=== PATIENT | female | born 1965 | race Caucasian/White ===

== ENCOUNTER 2017-08-17 19:05 | Inpatient (IN) | payer OTHER ==
[~2017-08-17] VITALS: Ht 167.6 cm; Wt 122.2 kg
[2017-08-17 19:55] LABS: BASOPHIL % 0.4 % (0-2); PLATELET COUNT 225 x10^3mcL (130-400); RED CELL DISTRIBUTION WIDTH 13.8 % (11.5-14.5)
[2017-08-17 20:00] LABS: CALCIUM 8.9 mg/dL (8.5-10.1); CARBON DIOXIDE 30.1 mmol/L (21-32); CHLORIDE SERUM 103 mmol/L (98-107); CREATININE SERUM 0.9 mg/dL (0.6-1.0); GFR1 > 60 mL/min; GLUCOSE SERUM 136 mg/dL (74-106); POTASSIUM SERUM 3.8 mmol/L (3.5-5.1); SODIUM SERUM 143 mmol/L (136-145)
[2017-08-17 20:05] LABS: ALBUMIN 3.6 g/dL (3.4-5.0); ALKALINE PHOSPHATASE 82 U/L (46-116); ALT/SGPT 28 U/L (14-59); AST/SGOT 12 U/L (15-37); BILIRUBIN TOTAL 0.28 mg/dL (0.20-1.00); TOTAL PROTEIN, SERUM 6.7 g/dL (6.4-8.2)
[2017-08-17 20:14] LABS: AMPHETAMINE QUAL UR NONE DETECTED (NEG <=1000)
[2017-08-18 03:52] LABS: T3 TOTAL 1.08 ng/mL
[2017-08-18 03:58] LABS: CHOLESTEROL/HDL RATIO 3.2; MAGNESIUM 2.2 mg/dL (1.8-2.4); PHOSPHOROUS 4.1 mg/dL (2.5-4.9)
[2017-08-18 04:04] LABS: FREE T4 0.58 ng/dL (0.76-1.46); FREE THYROXINE INDEX 1.6 ug/dL (1.4-4.5)
[2017-08-18 04:10] VITALS: BP 99/62
[2017-08-18 06:09] LABS: BASOPHIL % 0.5 % (0-2); PLATELET COUNT 198 x10^3mcL (130-400); RED CELL DISTRIBUTION WIDTH 14.2 % (11.5-14.5)
[2017-08-18 06:53] LABS: CALCIUM 9.1 mg/dL (8.5-10.1); CARBON DIOXIDE 31.1 mmol/L (21-32); CHLORIDE SERUM 105 mmol/L (98-107); CREATININE SERUM 0.9 mg/dL (0.6-1.0); GFR1 > 60 mL/min; GLUCOSE SERUM 110 mg/dL (74-106); POTASSIUM SERUM 4.1 mmol/L (3.5-5.1); SODIUM SERUM 142 mmol/L (136-145)
[2017-08-18 08:27] LABS: microscopic required? YES; urine erythrocyte NEGATIVE (NEGATIVE)
[2017-08-18 10:49] VITALS: BP 110/72
[2017-08-18] MEDS ORDERED: DIVALPROEX SOD500 M3 PO (13:14)
[2017-08-18] MEDS ORDERED: PANTOPRAZOLE SO40 M1 PO (13:14)
[2017-08-18] MEDS ORDERED: OLANZAPINE10 MG PO (13:15)
[2017-08-18] MEDS ORDERED: TRAZODONE50 M1 PO (13:15)
[2017-08-18] MEDS ORDERED: PAROXETINE30 M1 PO ×2 (13:15→13:29)
[2017-08-18] MEDS ORDERED: TRAZODONE100 MG PO (13:18)
[2017-08-18 15:38] VITALS: BP 111/64
[2017-08-18 18:00] VITALS: BP 127/70
[2017-08-18 21:01] VITALS: BP 112/61
[2017-08-19 08:56] VITALS: BP 141/77
[2017-08-19 17:45] VITALS: BP 129/71
[2017-08-20 05:43] VITALS: BP 102/57
[2017-08-20 10:22] VITALS: BP 126/78
[2017-08-20 15:44] LABS: BASOPHIL % 0.4 % (0-2); PLATELET COUNT 232 x10^3mcL (130-400); RED CELL DISTRIBUTION WIDTH 13.4 % (11.5-14.5)
[2017-08-20 15:55] LABS: CALCIUM 8.7 mg/dL (8.5-10.1); CARBON DIOXIDE 30.5 mmol/L (21-32); CHLORIDE SERUM 101 mmol/L (98-107); GFR1 > 60 mL/min; GLUCOSE SERUM 116 mg/dL (74-106); MAGNESIUM 2.1 mg/dL (1.8-2.4); PHOSPHOROUS 3.4 mg/dL (2.5-4.9); POTASSIUM SERUM 4.3 mmol/L (3.5-5.1); SODIUM SERUM 133 mmol/L (136-145)
[2017-08-20 17:22] VITALS: BP 140/87
[2017-08-20 22:12] VITALS: BP 102/62
[2017-08-21 06:18] VITALS: BP 96/58
[2017-08-21 06:40] LABS: BASOPHIL % 0.5 % (0-2); PLATELET COUNT 213 x10^3mcL (130-400); RED CELL DISTRIBUTION WIDTH 13.7 % (11.5-14.5)
[2017-08-21 06:59] LABS: CALCIUM 8.7 mg/dL (8.5-10.1); CARBON DIOXIDE 29.3 mmol/L (21-32); CHLORIDE SERUM 103 mmol/L (98-107); CREATININE SERUM 0.9 mg/dL (0.6-1.0); GFR1 > 60 mL/min; GLUCOSE SERUM 101 mg/dL (74-106); MAGNESIUM 2.2 mg/dL (1.8-2.4); PHOSPHOROUS 4.5 mg/dL (2.5-4.9); POTASSIUM SERUM 4.3 mmol/L (3.5-5.1); SODIUM SERUM 139 mmol/L (136-145)
[2017-08-21 09:43] VITALS: BP 121/66
[2017-08-21 14:22] VITALS: Ht 167.6 cm; Wt 122.2 kg
[2017-08-21 17:41] VITALS: BP 98/61
[2017-08-21] MEDS ORDERED: LAMICTAL200 MG PO (17:42)
[2017-08-21] MEDS ORDERED: ZIPRASIDONE HCL40 M1 PO (17:42)
== END 2017-08-21 18:24 | DRG 885 ==
LOC: ED 19:05 → DU 08-18 01:40 → MU 08-18 01:40 → DU 08-18 03:53 → MU 08-18 23:08
PROVIDERS: Emergency Medicine; Family Medicine; Student in an Organized Health Care Education/Training Program
DX: F25.0 Schizoaffective disorder, bipolar type (principal); N17.0 Acute kidney failure with tubular necrosis; R45.851 Suicidal ideations; Z68.41 Body mass index [BMI] 40.0-44.9, adult; K21.9 Gastro-esophageal reflux disease without esophagitis; R73.03 Prediabetes; I10 Essential (primary) hypertension; F43.10 Post-traumatic stress disorder, unspecified; F42.9 Obsessive-compulsive disorder, unspecified; F17.210 Nicotine dependence, cigarettes, uncomplicated; F15.11 Other stimulant abuse, in remission; Z86.73 Personal history of transient ischemic attack (TIA), and cerebral infarction without residual deficits
CPT/HCPCS: 83880; 84439; G0480; J2060; J7030; Q0092; Q0162